=== PATIENT | male | born 1970 | race African-American/Black ===

== ENCOUNTER 2017-01-07 20:35 | Emergency (ER) | payer SELFPAY ==
[~2017-01-07] VITALS: Ht 195.6 cm; Wt 90.7 kg
[~2017-01-07 20:35] MED LIST: ALBUTEROL SULF8.5 GM INH; PREDNISONE20 MG ORAL
[2017-01-07 21:04] VITALS: BP 160/82
--- NOTE | 2017-01-07 21:18 | Emergency Room Report ---
History of Present Illness General Chief Complaint: Skin Rash/Abscess Source: Patient Present Illness HPI Ringworm. Treated with topicals without success. Also took fluconazole for one week. Hands and forearm L. Itches. No pain. Prior use of prednisone for asthma. No fevers, dyspnea, NVD, liver problems. Allergies: Coded Allergies: No Known Allergies (Unverified , 05/27/16) Patient History Past Medical History: see triage record Social History: Reports: smoking Social History Narrative home Reviewed Nursing Documentation: PMH: Agreed, PSxH: Agreed Nursing Documentation-PMH Past Medical History: No Stated History Hx Asthma: Yes - Allergy induced Review of Systems All Other Systems: negative except mentioned in HPI Physical Exam Vital Signs Date Time Temp Pulse Resp B/P Pulse Ox O2 Delivery O2 Flow Rate FiO2 01/07/17 20:57 98.2 60 14 160/82 98 Room Air Sp02 EP Interpretation: reviewed, normal General Appearance: well appearing, no apparent distress Head: normocephalic, atraumatic Eyes: bilateral eye normal inspection ENT: hearing grossly normal, normal voice, moist mucus membranes Neck: full range of motion, supple Respiratory: no respiratory distress, speaking full sentences Musculoskeletal: gait/station normal, normal range of motion, other - see skin Neurologic: alert, oriented x3, normal gait, grossly normal Psychiatric: mood/affect normal Skin: other - annular lesions L forearma and on hands Medical Decision Making Diagnostic Impression: Primary Impression: Tinea corporis Additional Impression: Tinea manus ER Course Patient with lesions c/w tinea corporis and manus. Unresponsive to topical treatment. Not appear like cellulitis. Predisposed as prior use of prednisone. Prescriptions written. Patient stable for outpatient observation and treatment. Last Vital Signs Date Time Temp Pulse Resp B/P Pulse Ox O2 Delivery O2 Flow Rate FiO2 01/07/17 21:32 98.2 60 14 160/82 98 Room Air Status: unchanged Disposition: HOME, SELF-CARE Condition: Stable Scripts Tolnaftate* (AF*) 130 Gm Aero.powd 1 APPLIC TOPIC TWICE A DAY, #130 GM Prov: Anthony Hendrix M.D. 01/07/17 Terbinafine Hcl* (LAMISIL*) 250 Mg Tablet 250 MG PO DAILY, #14 TAB Prov: Anthony Hendrix M.D. 01/07/17 Anthony Hendrix M.D. Jan 07, 2017 21:18
[2017-01-07] MEDS ORDERED: AF130 GM TOPIC (21:23)
[2017-01-07] MEDS ORDERED: TERBINAFINE HC250 MG PO (21:23)
[2017-01-07 21:32] VITALS: BP 160/82
== END 2017-01-07 22:02 | disposition home or self-care (01) ==
LOC: EMR 21:20
DX: B35.4 Tinea corporis (principal); J45.909 Unspecified asthma, uncomplicated
CPT/HCPCS: 99284